=== PATIENT | male | born 1990 | race American Indian/Alaskan Native ===

== ENCOUNTER 2016-11-16 21:18 | Emergency (ER) | payer SELFPAY ==
[2016-11-17 00:59] VITALS: BP 129/72
--- NOTE | 2016-11-17 02:00 | Emergency Department Report ---
ED ENT HPI - General Chief complaint: Sore Throat Stated complaint: SORE THROAT, RED EYE Time Seen by Provider: 11/17/16 01:37 Source: patient Mode of arrival: Ambulatory Limitations: No Limitations - History of Present Illness Initial comments: 26-year-old male past medical history none presents with complaint of 2 days of left sided conjunctival irritation and crusting of eyelid mild mucoid discharge from left eye. Complaining of left eye irritation. 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 Also complaining of to 3 days of sore throat states he sees exudates in the back of his throat and has some pain when swallowing solids, no difficulty swallowing liquids. Positive for body aches. Denies any significant fevers or chills no stridor no wheezing no difficulty breathing. Onset/Timin -: days(s) Location: throat Severity: moderate Severity scale (0 -10): 5 Quality: aching Consistency: intermittent Worsens with: swallowing (mild pain with swallowing solids) Associated Symptoms: fever, sore throat - Related Data Previous Rx's Medication Instructions Recorded Last Taken Type Ibuprofen [Motrin] 600 mg PO Q8H PRN #30 tablet 11/17/16 Unknown Rx Polymyxin B Sulf/Trimethoprim 1 drop OP QID #1 bottle 11/17/16 Unknown Rx [Polytrim Eye Drops [id number]/0.1%] Allergies Allergy/AdvReac Type Severity Reaction Status Date / Time No Known Allergies Allergy Unverified 11/16/16 22:28 ED Dental HPI - General Chief complaint: Sore Throat Stated complaint: SORE THROAT, RED EYE Time Seen by Provider: 11/17/16 01:37 Source: patient Mode of arrival: Ambulatory Limitations: No Limitations - Related Data Previous Rx's Medication Instructions Recorded Last Taken Type Ibuprofen [Motrin] 600 mg PO Q8H PRN #30 tablet 11/17/16 Unknown Rx Polymyxin B Sulf/Trimethoprim 1 drop OP QID #1 bottle 11/17/16 Unknown Rx [Polytrim Eye Drops [id number]/0.1%] Allergies Allergy/AdvReac Type Severity Reaction Status Date / Time No Known Allergies Allergy Unverified 11/16/16 22:28 ED Review of Systems ROS: Stated complaint: SORE THROAT, RED EYE Other details as noted in HPI Constitutional: denies: chills, fever Eyes: eye discharge (mild discharge from left eye, slight crusting when he wakes up as per patient). denies: eye pain, vision change ENT: throat pain. denies: ear pain Respiratory: denies: cough, shortness of breath, wheezing Cardiovascular: denies: chest pain, palpitations Endocrine: no symptoms reported Gastrointestinal: denies: abdominal pain, nausea, diarrhea Genitourinary: denies: urgency, dysuria Musculoskeletal: denies: back pain, joint swelling, arthralgia Skin: denies: rash, lesions Neurological: denies: headache, weakness, paresthesias Psychiatric: denies: anxiety, depression Hematological/Lymphatic: denies: easy bleeding, easy bruising ED Past Medical Hx - Past Medical History Previous Medical History?: No - Surgical History Past Surgical History?: No - Social History Smoking Status: Never Smoker Substance Use Type: None - Medications Home Medications: Home Medications Medication Instructions Recorded Confirmed Last Taken Type Ibuprofen [Motrin] 600 mg PO Q8H PRN #30 tablet 11/17/16 Unknown Rx Polymyxin B Sulf/Trimethoprim 1 drop OP QID #1 bottle 11/17/16 Unknown Rx [Polytrim Eye Drops [id number]/0.1%] ED Physical Exam - General Limitations: No Limitations General appearance: alert, in no apparent distress - Head Head exam: Present: atraumatic, normocephalic - Eye Eye exam: Present: normal appearance, PERRL, EOMI - Expanded Eye Exam Expanded Pupils: Regular, Round: Bilateral, Reactive: Bilateral Sclera/Conjunctival: Injection: Left (mild left-sided conjunctival injection), Hemorrhage: Bilateral Visual acuity (R) = 20/: 20 Visual acuity (L) = 20/: 20 - ENT ENT exam: Present: mucous membranes moist - Expanded ENT Exam Expanded Throat exam: Positive: tonsillar exudate (bilateral tonsillar exudates no DRIVER RECRUITER uvula midline) - Neck Neck exam: Present: normal inspection, full ROM - Respiratory Respiratory exam: Present: normal lung sounds bilaterally. Absent: respiratory distress - Cardiovascular Cardiovascular Exam: Present: regular rate, normal rhythm. Absent: systolic murmur, diastolic murmur, rubs, gallop - GI/Abdominal GI/Abdominal exam: Present: soft, normal bowel sounds - Rectal Rectal exam: Present: deferred - Extremities Exam Extremities exam: Present: normal inspection - Back Exam Back exam: Present: normal inspection - Neurological Exam Neurological exam: Present: alert, oriented X3 - Psychiatric Psychiatric exam: Present: normal affect, normal mood - Skin Skin exam: Present: warm, dry, intact, normal color. Absent: rash ED Course Vital Signs 11/16/16 11/17/16 11/17/16 22: 00:57 02:12 Temperature 98.1 F 97.8 F Pulse Rate 83 81 Respiratory 16 21 20 Rate Blood Pressure 153/89 Blood Pressure 153/89 129/72 [Left] O2 Sat by Pulse 98 100 Oximetry ED Medical Decision Making - Medical Decision Making A/P: Conjunctivitis, pharyngitis 1-patient has significant amount of bilateral tonsillar exudates uvula is midline no signs of DRIVER RECRUITER will treat empirically with Bicillin 2-Motrin 600 when necessary 3-Polytrim drops left eye 4-follow-up with primary care doctor Critical care attestation.: If time is entered above; I have spent that time in minutes in the direct care of this critically ill patient, excluding procedure time. ED Disposition Clinical Impression: Conjunctivitis Qualifiers: Conjunctivitis type: acute Acute conjunctivitis type: unspecified Laterality: left Qualified Code(s): H10.32 - Unspecified acute conjunctivitis, left eye Acute pharyngitis Qualifiers: Pharyngitis/tonsillitis etiology: unspecified etiology Qualified Code(s): J02.9 - Acute pharyngitis, unspecified Disposition: DISCHARGED TO HOME OR SELFCARE Is pt being admited?: No Does the pt Need Aspirin: No Condition: Stable Instructions: Pharyngitis (ED), Conjunctivitis (ED) Prescriptions: Ibuprofen [Motrin] 600 mg PO Q8H PRN #30 tablet PRN Reason: Pain Polymyxin B Sulf/Trimethoprim [Polytrim Eye Drops [id number]/0.1%] 1 drop OP QID #1 bottle Referrals: SEFERINO BROWN MD [Staff Physician] - 3-5 Days Forms: Work/School Release Form(ED) Time of Disposition: 02:00
[2016-11-17] MEDS: MOTRIN PO ONE (02:12)
[2016-11-17] MEDS: BICILLIN L-A IM ONE (02:17)
== END 2016-11-17 03:20 | disposition home or self-care (01) ==
LOC: ED 21:18
DX: J02.9 Acute pharyngitis, unspecified (principal); H10.32 Unspecified acute conjunctivitis, left eye
CPT/HCPCS: 87116; 87430; 96372; 99282; J0561